=== PATIENT | female | born 1980 | race Caucasian/White ===

== ENCOUNTER 2023-07-15 14:18 | Emergency (ER) | END 2023-07-15 16:45 | disposition left against medical advice (07) | DRG 951 | LOC: ED 14:18 | DX: Z53.21 Procedure and treatment not carried out due to patient leaving prior to being seen by health care provider (principal) ==

== ENCOUNTER 2024-01-28 10:01 | Emergency (ER) | payer BC ==
[~2024-01-28] VITALS: Ht 170.2 cm; Wt 82.0 kg
[2024-01-28] VITALS (19 sets, daily range): BP systolic 109–135; BP diastolic 73–88
[2024-01-28] MEDS ORDERED: ASPIRIN 81 MG/TAB PO ONE (10:10)
[2024-01-28 10:23] LABS: BASO% 0.6 % (0-3); EOS% 0.8 % (0-8); HEMATOCRIT 44.5 % (37.0-47.0); HEMOGLOBIN 14.8 g/dl (12.0-16.0); IMMATURE GRANULOCYTES 0.1 % (0.0-5.0); LYMPH% 31.8 % (15-41); MEAN CELL VOLUME 92.9 fL CALC (80.0-100.0); MEAN CORPUSCULAR HGB 30.9 pG CALC (26.0-32.0); MEAN CORPUSCULAR HGB CONC 33.3 g/dL CAL (32.0-36.0); MONO% 7.2 % (2-13); NEUT# 5.65 thou/uL (2.00-7.15); NEUT% 59.5 % (42-76); RED BLOOD COUNT 4.79 mill/uL (4.20-5.60); RED CELL DISTRI WIDTH 12.2 % (11.5-15.5)
[2024-01-28 10:39] LABS: ALBUMIN 4.5 g/dL (3.2-5.0); ALKALINE PHOSPHATASE 107 u/l (38-126); ANION GAP 11 (6-22 (CALC)); BILIRUBIN, TOTAL 0.6 mg/dL (0.02-1.3); BUN 16 mg/dL (7-17); BUN/CREATININE RATIO 17 (12-20 (CALC)); CARBON DIOXIDE 19 mmol/l (22-30); CHLORIDE 110 mmol/l (95-108); CREATININE 0.9 mg/dL (0.5-1.0); ESTIMATED GFR 81 ML/MIN (>=90 (CALC)); POTASSIUM 4.1 mmol/l (3.5-5.1); SGOT/AST 38 u/l (14-36); SODIUM 137 mmol/l (137-146); TOTAL PROTEIN 7.7 g/dL (6.3-8.2)
[2024-01-28] MEDS ORDERED: FLEXERIL5 M1 PO (14:39)
[2024-01-28] MEDS ORDERED: MOTRIN400 MG/TAB PO (14:39)
== END 2024-01-28 15:10 | disposition home or self-care (01) | DRG 552 ==
LOC: ED 10:01
PROVIDERS: Family Medicine
DX: M54.6 Pain in thoracic spine (principal)
CPT/HCPCS: Q9967